=== PATIENT | male | born 1945 | race Native Hawaiian/Other Pacific Islander ===

== ENCOUNTER → 2016-12-02 | Outpatient (CLI) | payer MEDICARE, OTHER | END | disposition home or self-care (01) | LOC: RADMN 09:37 | PROVIDERS: ATTEND Physical Medicine & Rehabilitation Spinal Cord Injury Medicine | DX: M17.0 Bilateral primary osteoarthritis of knee (principal); S83.282A Other tear of lateral meniscus, current injury, left knee, initial encounter; S83.242A Other tear of medial meniscus, current injury, left knee, initial encounter; M48.061 Spinal stenosis, lumbar region without neurogenic claudication; M65.862 Other synovitis and tenosynovitis, left lower leg; S83.281A Other tear of lateral meniscus, current injury, right knee, initial encounter; M41.86 Other forms of scoliosis, lumbar region; M51.86 Other intervertebral disc disorders, lumbar region; M43.16 Spondylolisthesis, lumbar region; M51.26 Other intervertebral disc displacement, lumbar region; N40.0 Benign prostatic hyperplasia without lower urinary tract symptoms; Y93.9 Activity, unspecified; Y92.9 Unspecified place or not applicable; Y99.9 Unspecified external cause status | CPT/HCPCS: 72148; 73721 ==

== ENCOUNTER → 2017-03-03 | Outpatient (CLI) | payer MEDICARE, OTHER | END | disposition home or self-care (01) | LOC: RADMN 09:41 | PROVIDERS: ATTEND Physical Medicine & Rehabilitation Spinal Cord Injury Medicine | DX: I65.23 Occlusion and stenosis of bilateral carotid arteries (principal); I67.2 Cerebral atherosclerosis | CPT/HCPCS: 70544; 70547 ==

== ENCOUNTER 2023-02-28 05:51 | Emergency (ER) | payer MEDICARE, OTHER ==
[~2023-02-28] VITALS: Ht 167.6 cm; Wt 65.9 kg
[2023-02-28 05:59] VITALS: BP 158/98; PULSE 110; RESP 16; TEMP 98.7
[2023-02-28] MEDS ORDERED: DOXA2TAB86 PO (06:07)
[2023-02-28] MEDS ORDERED: ASPI-1450 PO (06:07)
[2023-02-28] MEDS ORDERED: METO25 PO (06:07)
[2023-02-28] MEDS ORDERED: BENZ-227 PO (06:07)
[2023-02-28] MEDS ORDERED: ALBU18HF12 IH (06:07)
[2023-02-28] MEDS ORDERED: AMLO-258 PO (06:07)
[2023-02-28] MEDS ORDERED: LIDOCAINE 2% 6 ML JELLY TP ONE (06:30)
[2023-02-28 07:34] LABS: APPEARANCE,URINE CLEAR (CLEAR); BILIRUBIN,URINE NEGATIVE (NEGATIVE); COLOR,URINE LIGHT BROWN (YELLOW); GLUCOSE, URINE (UA) NEGATIVE (NEGATIVE); KETONES,URINE NEGATIVE (NEGATIVE); LEUKOCYTE ESTERASE ,URINE NEGATIVE (NEGATIVE); NITRATE,URINE NEGATIVE (NEGATIVE); OCCULT BLOOD,URINE LARGE (NEGATIVE); PH,URINE 5.5 (5.0-8.0); PROTEIN,URINE TRACE mg/dL (NEGATIVE); SPECIFIC GRAVITIY, URINE 1.007 (1.003-1.030); UROBILINOGEN,URINE <=1.0 mg/dL (<=1.0)
[2023-02-28 07:58] LABS: BACTERIA,URINE None Seen /HPF (None Seen); RBC,URINE 26-50 /HPF (0-2); SQUAMOUS EPITHELIAL CELL,UR Few /LPF (None Seen); WBC,URINE None Seen /HPF (0-5)
[2023-02-28] MEDS ORDERED: SULFAMETHOX/TRIMETH DS 800-160 MG/TABLET PO ONE (08:00)
== END 2023-02-28 08:20 | disposition home or self-care (01) ==
LOC: EMS 05:51
DX: R33.9 Retention of urine, unspecified (principal); J45.909 Unspecified asthma, uncomplicated; I10 Essential (primary) hypertension; Z98.890 Other specified postprocedural states
CPT/HCPCS: 99283; 81001; Q9967